=== PATIENT | female | born 1985 | race Caucasian/White ===

== ENCOUNTER 2024-04-09 20:55 | Emergency (ER) | payer MEDICAID ==
[~2024-04-09] VITALS: Ht 165.1 cm; Wt 63.5 kg
[2024-04-09] MEDS: HYDROMORPHONE 1 MG/1 ML DISP.SYRIN IM ONE (21:50)
[2024-04-09] MEDS: ONDANSETRON ODT 4 MG TAB.RAPDIS SL ONE (21:50)
[2024-04-09] MEDS ORDERED: ONDANSETRON ODT 4 MG TAB.RAPDIS ONE (21:52)
[2024-04-09] MEDS ORDERED: HYDROMORPHONE 2 MG/1 ML DISP.SYRIN ONE (21:52)
[2024-04-09] MEDS ORDERED: HYDR-3980 PO (23:38)
[2024-04-09] MEDS ORDERED: ONDA4TAB11 PO (23:38)
[2024-04-09] MEDS ORDERED: CYCL10TA9 PO (23:38)
[2024-04-09] MEDS: METOCLOPRAMIDE HCL 10 MG/2 ML VIAL IM ONE (23:40)
[2024-04-09] MEDS: diphenhydrAMINE 50 MG/1 ML VIAL IM ONE (23:40)
[2024-04-09] MEDS ORDERED: diphenhydrAMINE 50 MG/1 ML VIAL ONE (23:41)
[2024-04-09] MEDS ORDERED: METOCLOPRAMIDE HCL 10 MG/2 ML VIAL ONE (23:42)
[2024-04-10] MEDS ORDERED: TDAP DIPH,PERTUSS,TET VAC/PF 0.5 ML DISP.SYRIN IM ONE (00:30)
[2024-04-10] MEDS: TDAP DIPH,PERTUSS,TET VAC/PF 0.5 ML DISP.SYRIN IM ONE (00:30)
[2024-04-10 01:47] VITALS: BP 119/79; TEMP 98; O2SAT 97
== END 2024-04-10 01:00 | disposition home or self-care (01) ==
LOC: EDBD 20:57 → ER 20:57
DX: S60.222A Contusion of left hand, initial encounter (principal); S70.01XA Contusion of right hip, initial encounter; S00.83XA Contusion of other part of head, initial encounter; Q79.60 Ehlers-Danlos syndrome, unspecified; Z79.899 Other long term (current) drug therapy; V89.2XXA Person injured in unspecified motor-vehicle accident, traffic, initial encounter; Y92.410 Unspecified street and highway as the place of occurrence of the external cause; Y93.89 Activity, other specified; Y99.8 Other external cause status
CPT/HCPCS: 36415; 72170; 73130; 73551; 73590; 70450; 99285; 96372 ×2; 80320; 90715; 90471; J1200; J2765; J1171; A4606; A4663; G0480; Q0162